=== PATIENT | male | born 1990 | race American Indian/Alaskan Native ===

== ENCOUNTER 2019-08-25 08:07 | Emergency (ER) | payer SELFPAY ==
[2019-08-25 08:16] VITALS: BP 147/82
[2019-08-25] MEDS ORDERED: KETOROLAC 30 MG/1 ML INJ IM ONE (09:08)
[2019-08-25] MEDS ORDERED: dexAMETHasone 20 MG/5 ML VIAL IM ONE (09:08)
--- NOTE | 2019-08-25 09:12 | Emergency Department Report ---
ED General Adult HPI - General Chief complaint: Sore Throat Stated complaint: CHEST PAIN/SORE THROAT Time Seen by Provider: 08/25/19 09:01 Source: patient Mode of arrival: Ambulatory Limitations: No Limitations - History of Present Illness Initial comments: Patient complains of flulike symptoms onset last night. He reports headache, sore throat, myalgias, chest pain with inspiration. Denies any fever but states he has some sweats. Denies any recent travel or known sick contacts. -: Gradual Radiation: non-radiation Severity scale (0 -10): 6 Quality: aching Consistency: constant Improves with: none Worsens with: none Associated Symptoms: denies: cough, seizure, shortness of breath Treatments Prior to Arrival: none - Related Data Previous Rx's Medication Instructions Recorded Last Taken Type Butalb/Acetamin/Caff 50-325-40 1 tab PO Q6HR PRN #12 tab 08/25/19 Unknown Rx [Fioricet 50-325-40] predniSONE [Deltasone] 40 mg PO QDAY #10 tab 08/25/19 Unknown Rx Allergies Allergy/AdvReac Type Severity Reaction Status Date / Time No Known Allergies Allergy Unverified 08/25/19 08:16 ED Review of Systems ROS: Stated complaint: CHEST PAIN/SORE THROAT Other details as noted in HPI Comment: All other systems reviewed and negative Constitutional: see HPI ENT: as per HPI Respiratory: no symptoms reported Cardiovascular: as per HPI ED Past Medical Hx - Past Medical History Previous Medical History?: No - Surgical History Past Surgical History?: No - Social History Smoking Status: Never Smoker Substance Use Type: None - Medications Home Medications: Home Medications Medication Instructions Recorded Confirmed Last Taken Type Butalb/Acetamin/Caff 50-325-40 1 tab PO Q6HR PRN #12 tab 08/25/19 Unknown Rx [Fioricet 50-325-40] predniSONE [Deltasone] 40 mg PO QDAY #10 tab 08/25/19 Unknown Rx ED Physical Exam - General Limitations: No Limitations General appearance: alert, in no apparent distress - Head Head exam: Present: atraumatic, normocephalic - Eye Eye exam: Present: normal appearance - ENT ENT exam: Present: mucous membranes moist, other (Tonsils 2+ with exudate especially on the left, no peritonsillar abscess, uvula midline without edema.) - Neck Neck exam: Present: normal inspection, full ROM. Absent: meningismus - Respiratory Respiratory exam: Present: normal lung sounds bilaterally. Absent: respiratory distress, wheezes - Cardiovascular Cardiovascular Exam: Present: regular rate, normal rhythm. Absent: systolic murmur, diastolic murmur, rubs, gallop - GI/Abdominal GI/Abdominal exam: Present: soft, normal bowel sounds - Rectal Rectal exam: Present: deferred - Extremities Exam Extremities exam: Present: normal inspection - Back Exam Back exam: Present: normal inspection - Neurological Exam Neurological exam: Present: alert, oriented X3, normal gait, other (nonfocal) - Psychiatric Psychiatric exam: Present: normal affect, normal mood - Skin Skin exam: Present: warm, dry, intact, normal color. Absent: rash ED Course Vital Signs 08/25/19 08/25/19 08/25/19 08:08 09:18 09:38 Temperature 98.4 F Pulse Rate 85 Respiratory 20 18 18 Rate Blood Pressure 147/82 O2 Sat by Pulse 99 Oximetry ED Medical Decision Making - Radiology Data negative 2 view chest - Medical Decision Making 29-year-old healthy male present with complaints of sore throat, headache, myalgias, chest pain with inspiration since last night. PERC negative. On exam he does have tonsillitis, no sign of abscess, no trismus. We will check strep swab and chest x-ray. Given Toradol, Decadron. Strep negative, chest x-ray clear. Will treat supportively and follow-up PCP. - Differential Diagnosis viral syndrome, strep, pleurisy Critical care attestation.: If time is entered above; I have spent that time in minutes in the direct care of this critically ill patient, excluding procedure time. ED Disposition Clinical Impression: Viral syndrome, Tonsillitis Disposition: DC-01 TO HOME OR SELFCARE Is pt being admited?: No Condition: Good Instructions: Tonsillitis (ED), Viral Syndrome (ED) Additional Instructions: Your chest x-ray is normal, your strep test is negative. Would recommend rest, adequate fluids and a primary care doctor follow-up. Prescriptions: predniSONE [Deltasone] 40 mg PO QDAY #10 tab Butalb/Acetamin/Caff 50-325-40 [Fioricet 50-325-40] 1 tab PO Q6HR PRN #12 tab PRN Reason: Headache Referrals: PRIMARY CARE,MD [Primary Care Provider] - 3-5 Days CASSY CHASE MD [Staff Physician] - 3-5 Days Time of Disposition: 10:18
--- NOTE | 2019-08-25 09:17 | XRay Report ---
CHEST 2 VIEWS INDICATION: cp. COMPARISON: None available. FINDINGS: Support devices: None. Heart: Within normal limits. Pulmonary vasculature: Normal. Lungs/pleura: No acute air space or interstitial disease. No pneumothorax. Additional findings: None. IMPRESSION: 1. No acute findings. Signer Name: Bhavesh Cadet MD Signed: 08/25/2019 9:12 AM Workstation Name: [id number]
== END 2019-08-25 10:36 | disposition home or self-care (01) ==
LOC: ED 08:07
DX: B34.9 Viral infection, unspecified (principal); J03.90 Acute tonsillitis, unspecified; M79.10 Myalgia, unspecified site; Z79.899 Other long term (current) drug therapy
CPT/HCPCS: 71046; 87116; 87430; 96372; 99284; J1100; J1885

== ENCOUNTER 2020-05-04 14:30 | Emergency (ER) | payer SELFPAY ==
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
--- NOTE | 2020-05-04 16:03 | XRay Report ---
CERVICAL SPINE 3 VIEWS INDICATION: neck injury. COMPARISON: None. IMPRESSION: Normal alignment. No significant discogenic DJD or facet arthropathy. No acute osseous or soft tissue abnormality. LUMBOSACRAL SPINE 3 VIEWS INDICATION: Back injury. COMPARISON: None. IMPRESSION: Normal alignment. No significant discogenic DJD or facet arthropathy. No acute osseous or soft tissue abnormality. LEFT SHOULDER 3 VIEWS INDICATION: Left shoulder injury, pain. COMPARISON: None. IMPRESSION: No acute osseous or soft tissue abnormality. No significant DJD. Signer Name: Brent Walls Jr, MD Signed: 05/04/2020 3:58 PM Workstation Name: [id number]
[2020-05-04 18:01] VITALS: BP 112/64
== END 2020-05-04 18:00 | disposition home or self-care (01) ==
LOC: ED 14:30
DX: M54.2 Cervicalgia (principal); M54.5 Low back pain; Z79.899 Other long term (current) drug therapy; V49.49XA Driver injured in collision with other motor vehicles in traffic accident, initial encounter; Y93.89 Activity, other specified; Y92.488 Other paved roadways as the place of occurrence of the external cause; Y99.8 Other external cause status
CPT/HCPCS: 72040; 72100; 99283